=== PATIENT | female | born 1970 | race Caucasian/White ===

== ENCOUNTER 2017-07-01 10:56 | Emergency (ER) | payer BC ==
[~2017-07-01] VITALS: Ht 157.5 cm; Wt 63.0 kg
[2017-07-01] MEDS ORDERED: ESTRADIOL1 MG TD (11:39)
[2017-07-01] MEDS ORDERED: NORVASC10 MG PEG (11:39)
[2017-07-01] MEDS ORDERED: PROZAC20 MG PO (11:39)
[2017-07-01] MEDS ORDERED: IBUPROFEN 600 MG TAB PO STA (14:24)
[2017-07-01 15:24] VITALS: BP 109/69
== END 2017-07-01 14:40 | disposition home or self-care (01) ==
LOC: FSED 10:56
DX: R53.1 Weakness (principal); R55 Syncope and collapse; I10 Essential (primary) hypertension
CPT/HCPCS: 70450; 71046; 80053; 81003; 82553; 84484; 85025; 93005; 99284

== ENCOUNTER → 2018-04-20 | Outpatient (CLI) | payer BC ==
[~2018-04-20] MED LIST: ESTRADIOL1 MG TD; IOPAMIDOL 370 MG/ML 200 ML INFUS..BTL INJ ONE; NORVASC10 MG PEG; PROZAC20 MG PO; SODIUM CHLORIDE 0.9% 50ML 50 ML ONE
[2018-04-20 10:43] LABS: % IRON SATURATION 16 % (15-50); BLOOD UREA NITROGEN 17 mg/dL (7-26); BUN/CREATININE RATIO 25 (6-25); CREATININE, SERUM 0.69 mg/dL (0.57-1.11); EST GLOMERULAR FILTRATION RATE > 60 ML/MIN (60-); IRON 67 ug/dL (50-170); TOTAL IRON BINDING CAPACITY 412 ug/dL (261-478); TRANSFERRIN 294 mg/dL (180-382)
[2018-04-20 11:03] LABS: FERRITIN 12.11 ng/mL (4.63-204.00)
--- NOTE | 2018-04-20 11:35 | Diagnostic Imaging Report ---
EXAMINATION: CT of the chest with contrast, PE protocol. TECHNIQUE: Spiral CT images of the chest were performed from the lung apices through the level of the adrenal glands after the IV administration of 100 cc of Isovue-370. Thin section reconstructions were obtained with special concentration on the pulmonary arteries. COMPARISON: <none> CLINICAL HISTORY:Chest pain DISCUSSION: Vasculature: The main pulmonary artery, right and left pulmonary arteries, and their visualized lobar and segmental branches, are patent, without filling defect. The pulmonary outflow tract is of normal caliber. There is no ectasia or aneurysmal dilatation of the thoracic aorta. Variant aortic arch anatomy with a separate origin of the left vertebral artery between the origins of the left common carotid and left subclavian artery. Lungs: Trace subsegmental atelectasis in the dependent lower lobes, evidenced by reticular and groundglass opacities. No consolidation, bronchiectasis, or gross fibrotic change. 4 mm nodule in the left lung apex seen on series 3 image 21. Trachea, mainstem bronchi, and central lobar and segmental bronchi are patent. Airways: <The major airways are clear.> Pleura: <There is no evidence of pleural effusion or pneumothorax.> Heart and mediastinum: Visualized portions of the thyroid gland appear normal. No axillary, hilar, or mediastinal lymphadenopathy. Normal heart size. No pericardial effusion. Abdomen: Subcentimeter hypoattenuating lesion in hepatic segment 7 too small to further characterize but likely to represent a small cyst; similar lesion in segment 6. Calcified splenic granuloma. Visualized portions of the gallbladder, pancreas, and adrenal glands are unremarkable Bones and soft tissues: No focal soft tissue abnormalities. No osseous destructive lesions. IMPRESSION: No pulmonary embolus to the level of the segmental branch pulmonary arteries. Trace bibasilar subsegmental atelectasis. Otherwise clear lungs. 4 mm left apical pulmonary nodule is likely a sequela of prior infectious or inflammatory process, particularly in the setting of a calcified splenic granuloma. However, follow-up CT scan of the chest without contrast may be obtained in 12 months if the patient is at high risk for malignancy per Fleischner Society 2017 guidelines. Signed by: Dr. Deandre Tavarez M.D. on 04/20/2018 11:31 AM
== END ==
LOC: CT 09:32
PROVIDERS: ATTEND Emergency Medicine
DX: R07.9 Chest pain, unspecified (principal); R53.82 Chronic fatigue, unspecified
CPT/HCPCS: 36415; 71260; 82565; 82607; 82728; 82747; 83540; 84466; 84520; 85045; Q9967

== ENCOUNTER → 2018-11-16 | Outpatient (CLI) | payer BC ==
[~2018-11-16] MED LIST changes: -IOPAMIDOL 370 MG/ML 200 ML INFUS..BTL INJ ONE; -SODIUM CHLORIDE 0.9% 50ML 50 ML ONE
--- NOTE | 2018-11-20 08:41 | Diagnostic Imaging Report ---
#[id number] - [id number] #BILATERAL DIGITAL SCREENING MAMMOGRAM WITH CAD: 11/16/2018 CLINICAL: Routine screening. No prior exams were available for comparison. The tissue of both breasts is heterogeneously dense. This may lower the sensitivity of mammography. Current study was also evaluated with a Computer Aided Detection (CAD) system. Benign appearing calcifications are noted bilaterally. No significant masses, calcifications, or other findings are seen in either breast. IMPRESSION: BENIGN Previous films are not available, we will issue an addendum when films are reviewed. There is no mammographic evidence of malignancy. A 1 year screening mammogram is recommended. The patient will be notified by letter of the results. PAULINO CARPENTER M.D. ct/penrad:11/17/2018 16:41:44 [employer]': Kelsey HUMPHRIES)([place]), [facility] letter sent: Normal Exam Mammogram BI-RADS: 2 Benign
== END ==
LOC: MAMMO 09:02
PROVIDERS: ATTEND Obstetrics & Gynecology
DX: Z12.31 Encounter for screening mammogram for malignant neoplasm of breast (principal)
CPT/HCPCS: 77067

== ENCOUNTER → 2019-02-15 | Outpatient (CLI) | payer BC ==
--- NOTE | 2019-02-15 09:54 | Diagnostic Imaging Report ---
Bilateral fingers, 3 views each. History: Bilateral fourth digit swelling.. Findings: The soft tissues are normal. Bone mineralization is normal. There is no evidence of fracture or dislocation. There are no lytic or sclerotic lesions. The joint spaces are within normal limits. IMPRESSION: Normal bilateral fourth fingers. Signed by: Shashank Parr on 02/15/2019 9:50 AM
== END ==
LOC: RAD 08:58
PROVIDERS: ATTEND Emergency Medicine
DX: M79.89 Other specified soft tissue disorders (principal)

== ENCOUNTER → 2019-10-22 | Day surgery (SDC) | payer BC, OTHER ==
[~2019-10-22] MED LIST changes: +FENTANYL CITRATE/PF 100MCG/2 ML INJ ONE; +HYOSCYAMINE 0.125 MG TAB ONE; +LIDOCAINE HCL 2% LOCAL INJ 5 ML SDV VIAL INJ ONE; +MIDAZOLAM HCL 2 MG/2 ML VIAL ONE; -NORVASC10 MG PEG; +NORVASC10 MG PO; +PROPOFOL IV EMULSION 10 MG/ML 20 ML VIAL ONE
[2019-10-22 11:35] VITALS: BP 139/69
--- NOTE | 2019-10-22 13:43 | Operative Report ---
DATE OF PROCEDURE: 10/22/2019 SURGEON: Louis Quan MD PROCEDURE: Colonoscopy with polypectomy and biopsies. INDICATIONS FOR COLONOSCOPY: Colorectal cancer screening, history of mucousy bloody rectal discharge. MEDICATIONS: The patient was done under MAC, please see anesthesiologist's note. PROCEDURE IN DETAIL: With the patient in left lateral decubitus position, a flexible fiberoptic Olympus colonoscope was inserted into the rectum with ease and advanced all the way to the cecum. Mucosa overlying the cecum appeared to be within normal limits. The ileocecal valve was intubated and the scope was advanced into the terminal ileum. Biopsies were obtained. The scope was then withdrawn back into the colon. It was then withdrawn slowly. Two minute polyps were removed per cold biopsy forceps from the ascending colon. The transverse and descending appeared to be within normal limits. Mucosa overlying the distal sigmoid and the rectum revealed some patchy areas of erythema and moderate edema, and biopsies were obtained. An approximately 5 mm polyp was removed per hot snare polypectomy from the proximal rectum. The scope was then retroflexed into the distal rectum and small internal hemorrhoids were noted, none of which was actively bleeding. The scope was then straightened out, it was subsequently withdrawn. The patient tolerated the procedure well. IMPRESSION: 1. Ascending colon polyps x2, removed per cold biopsy forceps. 2. Proctosigmoiditis, mild. 3. Rectal polyp, hot snared. 4. Internal hemorrhoids, none actively bleeding. PLAN: Follow up histology. Follow up stool studies. Initiate VSL #3 one p.o. b.i.d. The patient will need a followup colonoscopy in 3 years. Louis Quan MD [facility] [place]/MODL /[id number] cc: Dr. Malcolm
[2019-10-22 14:24] LABS: WBC,FECAL (FECAL LACTOFERRIN) NEGATIVE (NEGATIVE)
[2019-10-22 14:29] LABS: C DIFFICILE TOXIN A&B AMP PROB NEGATIVE (NEGATIVE)
== END | disposition home or self-care (01) ==
LOC: OR 05:58
PROVIDERS: ATTEND Internal Medicine Gastroenterology
DX: Z12.11 Encounter for screening for malignant neoplasm of colon (principal); D12.2 Benign neoplasm of ascending colon; K62.1 Rectal polyp; K63.89 Other specified diseases of intestine; K64.8 Other hemorrhoids; I10 Essential (primary) hypertension; F41.9 Anxiety disorder, unspecified; Z01.810 Encounter for preprocedural cardiovascular examination; Z01.812 Encounter for preprocedural laboratory examination; Z11.59 Encounter for screening for other viral diseases
CPT/HCPCS: 45380; 45385; 83630; 83993; 87045; 87177; 87328; 87493; 87635; 93005; J2001; J2250; J2704; J3010; 45378; 45384

== ENCOUNTER → 2020-05-14 | Outpatient (CLI) | payer OTHER ==
[~2020-05-14] MED LIST changes: +COVID-19 VACC, MRNA(MODERNA)/PF 100 MCG/0.5 ML VIAL IM ONE; -FENTANYL CITRATE/PF 100MCG/2 ML INJ ONE; -HYOSCYAMINE 0.125 MG TAB ONE; -LIDOCAINE HCL 2% LOCAL INJ 5 ML SDV VIAL INJ ONE; -MIDAZOLAM HCL 2 MG/2 ML VIAL ONE; -PROPOFOL IV EMULSION 10 MG/ML 20 ML VIAL ONE
== END ==
LOC: VACCPMC 05-06 00:50
DX: Z23 Encounter for immunization (principal); Z20.828 Contact with and (suspected) exposure to other viral communicable diseases
CPT/HCPCS: 0011A; 91301

== ENCOUNTER → 2020-06-02 | Outpatient (CLI) | payer OTHER ==
[~2020-06-02] MED LIST changes: -COVID-19 VACC, MRNA(MODERNA)/PF 100 MCG/0.5 ML VIAL IM ONE
== END ==
LOC: MAMMO 11:31
PROVIDERS: ATTEND Obstetrics & Gynecology
DX: Z12.31 Encounter for screening mammogram for malignant neoplasm of breast (principal)
CPT/HCPCS: 77067

== ENCOUNTER → 2020-06-13 | Outpatient (CLI) | payer OTHER ==
[~2020-06-13] MED LIST changes: +COVID-19 VACC, MRNA(MODERNA)/PF 100 MCG/0.5 ML VIAL IM ONE
== END | DRG 951 ==
LOC: VACCPMC 10:24
DX: Z23 Encounter for immunization (principal); Z20.822 Contact with and (suspected) exposure to COVID-19
CPT/HCPCS: 0012A; 91301

== ENCOUNTER 2020-10-27 07:41 | Emergency (ER) | payer OTHER ==
[~2020-10-27 07:41] MED LIST changes: -COVID-19 VACC, MRNA(MODERNA)/PF 100 MCG/0.5 ML VIAL IM ONE
== END 2020-10-27 09:07 | disposition home or self-care (01) ==
LOC: FSED 07:58
DX: S92.351A Displaced fracture of fifth metatarsal bone, right foot, initial encounter for closed fracture (principal); W10.8XXA Fall (on) (from) other stairs and steps, initial encounter; Y93.01 Activity, walking, marching and hiking; Y92.008 Other place in unspecified non-institutional (private) residence as the place of occurrence of the external cause; F41.9 Anxiety disorder, unspecified
CPT/HCPCS: 99283